=== PATIENT | female | born 1955 | race Caucasian/White ===

== ENCOUNTER 2024-04-19 17:47 | Observation (INO) | payer MEDICARE, SELFPAY ==
[2024-04-19] VITALS (33 sets, daily range): BP systolic 137–177; BP diastolic 61–97; PULSE 74–98; RESP 12–28; TEMP 36.1–36.6; O2SAT 73–100; BMI 34.4
--- NOTE | ~2024-04-19 | CT_ITS ---
EXAMINATION: CTA chest PE abdomen pel DATE: 04/19/2024 20:07 INDICATION: TECHNIQUE: Computed tomography (CT) of the chest, abdomen, and pelvis was performed without intraveno us contrast. Automated exposure control and iterative reconstruction technique were employed. Exam do se: 1737.58 mGy-cm total exam DLP. COMPARISON: None FINDINGS: CHEST CT: Normal heart size. Trace pericardial fluid. No hilar or mediastinal mass lesion or lymphadenopathy. There is thoracic aortic calcification but no aneurysm or dissection. No hilar or mediastinal mass lesion or lymphadenopathy. Mild discoid atelectasis or scarring at the base of the lingula. Mild discoid atelectasis or scarring in the left lower lobe and mild posterior basilar dependent left lower lobe atelectasis, likely due to splinting from the rib fractures. The lungs otherwise appear clear. Recent nondisplaced anterolateral left fifth rib fracture, minimally displaced anterolateral left six th rib fracture. ABDOMEN/PELVIS CT: No hepatic, splenic, pancreatic, adrenal or renal space occupying mass lesion or laceration. Status post cholecystectomy. No bile duct or pancreatic duct dilatation. No urinary tract calculus or hydroureteronephrosis. The urinary bladder is unremarkable. Status post hysterectomy. There is atherosclerotic calcification but normal caliber of the abdominal aorta and iliac arteries. No intraperitoneal or retroperitoneal or pelvic mass lesion or adenopathy or ascites. Occasional sigmoid diverticula; no CT evidence of diverticulitis. No bowel obstruction or intraperito dylan free air. The appendix appears to be absent. Included skeletal structures are otherwise unremarkable. IMPRESSION: Recent left fifth and sixth rib fractures Status post cholecystectomy Status post hysterectomy Mild sigmoid diverticulosis; no evidence of diverticulitis Reviewed, dictated and finalized at [facility] Reviewed, dictated and finalized at [facility].
--- NOTE | 2024-04-19 18:06 | ED.GENADULT ---
HPI - General Adult General Chief complaint: Shortness of Breath/Dyspnea Stated complaint: shortness of breath Time Seen by Provider: 04/19/24 18:06 Source: patient Mode of arrival: ambulatory Limitations: no limitations History of Present Illness HPI narrative: 68-year-old COPD , emphysema, asthma, rhinitis female complains of shortness of breath for the past 4 days fell out of bed and caused a bruise to her left side complains of pain increasing ever since increasing shortness of breath. her chronic cough is not changed any she rated her left-sided pain 5 to 6/10. It is worse when she gets some spasms on that left side. She is followed by a classics professor in [place]. Denies any chest pain fever. Past medical history COPD emphysema asthma rhinitis depression macular degeneration in her right eye she had a respiratory arrest when she had COVID in 2002. No history kidney and liver strokes anemia thyroid disease or heart disease. Surgical history tonsillectomy bladder type IOP appendectomy COVID gallbladder removed cataract surgery hysterectomy in 1986 Allergies none Social history she lives with her brother daughter and granddaughter she smoked 1 pack a day Related Data Home Medications Medication Instructions Recorded Confirmed albuterol sulfate 90 mcg/actuation 2 puff inhalation QID 04/19/24 04/19/24 aerosol inhaler (Ventolin HFA) aspirin 81 mg tablet,delayed 81 mg PO DAILY 04/19/24 04/19/24 release (Adult Low Dose Aspirin) cholecalciferol (vitamin D3) 25 25 mcg PO DAILY 04/19/24 04/19/24 mcg (1,000 unit) tablet famotidine 20 mg tablet 20 mg PO DAILY 04/19/24 04/19/24 fluticasone 250 mcg-salmeterol 50 1 inh inhalation BID 04/19/24 04/19/24 mcg/dose blistr powdr for inhalation lutein 6 mg capsule 6 mg PO DAILY 04/19/24 04/19/24 magnesium 250 mg tablet 250 mg PO DAILY 04/19/24 04/19/24 montelukast 10 mg tablet 10 mg PO QHS 04/19/24 04/19/24 rosuvastatin 10 mg tablet 10 mg PO DAILY 04/19/24 04/19/24 sertraline 100 mg tablet 100 mg PO DAILY 04/19/24 04/19/24 theophylline 300 mg 300 mg PO BID 04/19/24 04/19/24 tablet,extended release,12 hr tiotropium bromide 2.5 2 inh inhalation DAILY 04/19/24 04/19/24 mcg/actuation mist for inhalation (Spiriva Respimat) Allergies Allergy/AdvReac Type Severity Reaction Status Date / Time No Known Allergies Allergy Unknown Verified 04/19/24 18:00 Review of Systems Review of Systems: All systems reviewed & are unremarkable except as noted in HPI and below Exam Narrative: White Elderlyfemale patient with moderate distress distress.? 177/89 respirations 28 O2 sat 73% on room air. ( patient is on 3 L of nasal cannula at home but did not come to the emergency department with her oxygen on. ) Her sat on 3 L was 93% she is afebrile rest of her vitals are normal. Head normocephalic, atraumatic.? Eyes conjunctiva pink sclera nonicteric.? Extraocular movements are intact.? Ears externally normal.? Oropharynx is clear with moist mucous membranes without exudates.? Neck is supple nontender no lymphadenopathy.? Back is nontender.? Lungs Show diffuse wheezes and rhonchi throughout.? Heart is regular rate and rhythm without murmurs gallops or rubs.? Chest wall Tenderness laterally with bruising under her left breast and side and abdomen. Abdomen is soft and nontender no hepatosplenomegaly or masses no CVA tenderness no abdominal bruits.? Extremities no cyanosis clubbing or edema.? Skin is warm and dry without rashes or lesions.? Neurological patient is alert and oriented x4.? Motor and sensory grossly intact.? Gait is normal. Course Vital Signs Vital signs: Vital Signs Temperature 36.1 C L 04/19/24 17:55 Pulse Rate 98 04/19/24 17:55 Respiratory Rate 28 H 04/19/24 17:55 Blood Pressure 177/89 H 04/19/24 17:55 Pulse Oximetry 73 L 04/19/24 17:55 Oxygen Delivery Room Air 04/19/24 17:55 Temperature 36.6 C 04/19/24 18:51 Pulse Rate 86
[2024-04-19] MEDS: IPRATROPIUM 0.5 MG/ALBUTEROL SULFATE 2.5 MG AMPUL.NEB 3 ML (18:08)
--- NOTE | 2024-04-19 18:08 | ECG_ITS ---
Test Date: 2024-04-19 18:24:45 Measurements Intervals [place] Rate: 76 P: 70 [place]: 192 QRS: 103 QRSD: 136 T: 62 QT: 399 QTc: 449 Interpretive Statements SINUS RHYTHM RIGHT AXIS DEVIATION RIGHT BUNDLE BRANCH BLOCK MINIMAL Q WAVES- INFERIOR LEADS BASELINE ARTIFACT- I, II, III, AVR, AVL, AVF, V2-V3 ABNORMAL ECG No previous ECG available for comparison Electronically Signed On 04-19-2024 19:32:30 CDT by Jeronimo Roldan D.O.
[2024-04-19] MEDS: ALBUTEROL SULFATE NEB 2.5 MG/3 ML INH INHALATION (18:15)
[2024-04-19] MEDS: fentaNYL CITRATE INJ (*CRX) 100 MCG/2 ML VIAL 50 MCG IV PUSH (18:34)
[2024-04-19] MEDS: ONDANSETRON INJ 4 MG/2 ML VIAL IV PUSH (18:35)
[2024-04-19] MEDS: methylPREDNISolone SOD SUCC 125 MG VIAL IV PUSH (18:35)
[2024-04-19 18:56] LABS: HCO3 ABG 30.6 mmol/L (23-29); Oxygen Content ABG 18.2 %vol (16.0-22.0); Oxygen Saturation ABG 90.2 % (95-97); Oxyhemoglobin 88.8 % (94-100); PO2 ABG 60.9 mmHg (75-85); pH ABG 7.33 (7.35-7.45)
[2024-04-19 18:59] LABS: Device NASAL CANNULA; Modified Allen's Test Pass; Site Drawn RIGHT RADIAL
[2024-04-19] MEDS: IPRATROPIUM 0.5 MG/ALBUTEROL SULFATE 2.5 MG AMPUL.NEB 3 ML INHALATION (19:02)
[2024-04-19 19:03] LABS: Hematocrit 43.6 % (35.0-42.0); Hemoglobin 13.5 g/dL (11.7-13.8); Mean Corpuscular Hemoglobin 29.5 pg (27.0-31.0); Mean Corpuscular Volume 95.2 fL (78.0-102.0); Mean Platelet Volume 10.2 fl (9.2-11.8); Platelet Count Result 216 K/mm3 (150-420); Red Blood Count 4.58 M/mm3 (4.20-5.40); Red Cell Distribution Width 13.9 % (11.6-14.4); White Blood Count 7.6 K/mm3 (4.8-10.8)
[2024-04-19 19:21] LABS: Lactic Acid Reflex 0.5 mmol/L (0.4-2.0)
[2024-04-19 19:30] LABS: Alanine Aminotransferase 15 U/L (14-59); Alkaline Phosphatase 95 U/L (46-116); Anion Gap 6 mmol/L (4-12); Aspartate Amino Transferase 13 U/L (15-37); Bilirubin,Total 0.7 mg/dL (0.00-1.00); Blood Urea Nitrogen 14 mg/dL (7-18); Calcium 8.9 mg/dL (8.5-10.1); Carbon Dioxide 35 mmol/L (21-32); Chloride 100 mmol/L (98-108); Estimated CRCL calculation 64 ml/min; Estimated Glomerular Filt Rate > 60; Glucose 115 mg/dL (70-99); INR 0.9; Lipase 20 U/L (16-77); Magnesium 1.6 mg/dL (1.8-2.4); NT Pro B Type Natriuretic Pept 180 pg/mL (0-125); Osmolality Calculated 293 mOsm/kg (285-295); Partial Thromboplastin Time 28.2 Sec (23.9-30.70); Potassium 4.3 mmol/L (3.5-5.1); Prothrombin Time 10.3 Seconds (9.50-12.1); Sodium 141 mmol/L (136-145); Total Protein 7.3 g/dL (6.4-8.2); Troponin I 9.3 ng/L (0.00-60.4)
[2024-04-19 19:32] LABS: Ethanol < 3 mg/dL (0-6)
--- NOTE | 2024-04-19 19:35 | PC.NURSE ---
Report received, pt resting, awaiting to go fro CT scan per order, no c/o reports feeling better since treatment.
[2024-04-19 19:37] LABS: Albumin Level 3.8 g/dL (3.4-5.0)
[2024-04-19 19:41] LABS: D Dimer 1.07 mg/L (0.19-0.50); SARS-CoV-2 RNA PCR Negative (Negative)
[2024-04-19 19:48] LABS: Influenza A QL RT-PCR Negative (Negative); Influenza B QL RT-PCR Negative (Negative); RSV RNA, RT-PCR Negative (Negative)
--- NOTE | 2024-04-19 20:58 | PC.NURSE ---
Pt resting and on her ipad, she reports feeling better, continuing to monitor, VSS, poc discussed w/ pt and she wants to be admitted here. Pt given sips of water w/ ice. Monitor shows SR and O2 in place continues at 3L NC.
--- NOTE | 2024-04-19 21:35 | PC.NURSE ---
Call placed to floor, spoke w/ charge preparation technician Juanita. Pt will be admitted for 23 hr obs. to Rm 208.
--- NOTE | 2024-04-19 21:48 | PC.NURSE ---
ED SBAR printed and reviewed; room is ready for pt arrival. Awaiting pt to arrive to floor from ED.
--- NOTE | 2024-04-19 22:10 | ADMGEN ---
This patient, Radha Washington, was admitted to 2nd Floor Room 208-2. Patient oriented to hospital policies and general routines including ID bracelet, bed and alarms, visiting hours, pain management, procedures, bathroom and other care routines, personal items, smoking policy, room service/diet, and visiting hours. Information on how to activate the Rapid Response Team has been discussed. Patient are encouraged to report perceived risks to care and to ask questions if they do not understand what they are told or what they should do.
[2024-04-20] VITALS (7 sets, daily range): BP systolic 156–162; BP diastolic 66–80; PULSE 73–96; RESP 16–20; TEMP 35.9–36.1; O2SAT 93–95
[2024-04-20] MEDS: IPRATROPIUM 0.5 MG/ALBUTEROL SULFATE 2.5 MG AMPUL.NEB 3 ML INHALATION ×2 (00:15→04:56)
[2024-04-20] MEDS: THEOPHYLLINE 300 MG ER 12 HR TABLET PO ×2 (00:17→09:27)
[2024-04-20] MEDS: FAMOTIDINE 20 MG TABLET PO ×2 (00:18→09:28)
[2024-04-20] MEDS: MONTELUKAST SODIUM 10 MG TABLET PO (00:18)
[2024-04-20] MEDS: methylPREDNISolone SOD SUCC 125 MG VIAL 60 MG IV PUSH (06:55)
--- NOTE | 2024-04-20 07:59 | PM.IMHP ---
H&P: HPI History of Present Illness Date/Time: 04/20/24 07:59 Chief Complaint: shortness of breaths Narrative: this is a 68-year-old female with a past medical history significant for COPD, asthma,.......... the patient provides the following history In the emergency room labs were significant for an elevated D-dimer of 1.07 and ABG showed pH 7.33, pCO2 60, PO2 60.9, HC03 30.6, and oxyhemoglobin 88.8% on 3 L nasal cannula. Her CBC was unremarkable. BNP showed CO2 35, glucose 115, magnesium 1.6, and proBNP 180. Quad viral screen was negative. Vital signs on admission, blood pressure of 177/89, heart rate 90, respiratory rate 28, pulse ox 73% on room air, and temperature 96.9?. the patient was placed on 3 L nasal cannula and her oxygen saturation improved to 93%. In the emergency room she received DuoNeb, methylprednisone 125 mg IV push, 4 mg of Zofran, 20 mg of Pepcid, and fentanyl 50 mcgs IVP for pain. She was admitted in this setting for observation of her acute on chronic hypoxic respiratory failure. Review of Systems Review of Systems: All systems reviewed & are unremarkable except as noted in HPI and below PMFSH Social History Social History Smoking packs per day: 1 Smoking cigarettes per day: 20.0 Years smoked: 54 Smoking pack-years: 54.00 Smoking status: Former smoker Tobacco type: cigarettes Smoking end date: 04/16/24 Alcohol intake: current Drinks per week: 0 Substance use: never Do You Feel Safe in your Home?: Yes Lack of Transportation: No Lack of Food: Never True Current Housing: I Have Housing Concerned About Future Housing: No Difficulty Paying Gas/Electric Bills: No Difficulty Paying for Meds: No Currently Unemployed: No Education: High School Diploma/GED Difficulty w/ Childcare or Family Care: No Spiritual care concerns: No Meds Home Medications and Allergies Home Medications Medication Instructions Recorded Confirmed Type albuterol sulfate 90 mcg/actuation 2 puff inhalation QID 04/19/24 04/19/24 History aerosol inhaler (Ventolin HFA) aspirin 81 mg tablet,delayed 81 mg PO DAILY 04/19/24 04/19/24 History release (Adult Low Dose Aspirin) cholecalciferol (vitamin D3) 25 25 mcg PO DAILY 04/19/24 04/19/24 History mcg (1,000 unit) tablet famotidine 20 mg tablet 20 mg PO DAILY 04/19/24 04/19/24 History fluticasone 250 mcg-salmeterol 50 1 inh inhalation BID 04/19/24 04/19/24 History mcg/dose blistr powdr for inhalation lutein 6 mg capsule 6 mg PO DAILY 04/19/24 04/19/24 History magnesium 250 mg tablet 250 mg PO DAILY 04/19/24 04/19/24 History montelukast 10 mg tablet 10 mg PO QHS 04/19/24 04/19/24 History rosuvastatin 10 mg tablet 10 mg PO DAILY 04/19/24 04/19/24 History sertraline 100 mg tablet 100 mg PO DAILY 04/19/24 04/19/24 History theophylline 300 mg 300 mg PO BID 04/19/24 04/19/24 History tablet,extended release,12 hr tiotropium bromide 2.5 2 inh inhalation DAILY 04/19/24 04/19/24 History mcg/actuation mist for inhalation (Spiriva Respimat) vitamin A-vitamin C-vit E-min 1 tablet PO DAILY 04/19/24 04/19/24 History tablet Allergies Allergy/AdvReac Type Severity Reaction Status Date / Time No Known Allergies Allergy Unknown Verified 04/19/24 18:00 Vital Signs Vital Signs - 24 hr 04/19/24 17:55 04/19/24 18:05 04/19/24 18:00 Temperature 96.9 F L Pulse Rate 98 90 Respiratory Rate 28 H Blood Pressure 177/89 H Pulse Oximetry 73 L 93 Oxygen Delivery Room Air Nasal Cannula Oxygen Flow Rate 3 04/19/24 17:58 04/19/24 18:09 04/19/24 18:16 Temperature Pulse Rate 76 77 Respiratory Rate 22 H 15 Blood Pressure Pulse Oximetry 84 L 93 95 Oxygen Delivery Nasal Cannula Oxygen Flow Rate 3 3 3 04/19/24 18:02 04/19/24 18:15 04/19/24 18:51 Temperature 97.8 F Pulse Rate 85 74 80 Respiratory Rate 24 H 14 Blood Pressure 150/72 H
[2024-04-20] MEDS: FLUTICASONE PROP 220 MCG (*SP) 12 GM INHALER 2 PUFF INHALATION (09:26)
[2024-04-20] MEDS: CHOLECALCIFEROL 1,000 UNITS TABLET 1000 UNITS PO (09:28)
[2024-04-20] MEDS: ASPIRIN 81 MG ENTERIC TABLET PO (09:28)
[2024-04-20] MEDS: MAGNESIUM OXIDE 400 MG TABLET 200 MG PO (09:29)
--- NOTE | 2024-04-20 09:29 | PM.SD2 ---
Same Day Admit/Disch: HPI History of Present Illness Chief complaint: COPD exacerbation Narrative: This is a 68-year-old female with a past medical history significant for COPD and asthma who presented to the emergency room with complaints of left-sided rib pain after falling out of bed a few days ago. The patient provides the following history. A few days ago she was asleep in bed and rolled out and struck her left side on a small table. The following day she had bruising and her pain has been increasingly worse so she wanted to come to the emergency room to be evaluated. She has chronic respiratory failure and COPD for which she wears 3 L continuously. Yesterday when she came to the emergency room she wore her oxygen in the car but then took it off to walk into the hospital as it was too heavy to take with her. While she does have congestion she has no increased sputum production, no increased shortness of breath, and no fever chills. She does not feel like she is having a COPD exacerbation. She really states she came because of her rib pain and make sure she had not developed a pneumonia. In the emergency room labs were significant for an elevated D-dimer of 1.07 and ABG showed pH 7.33, pCO2 60, PO2 60.9, HC03 30.6, and oxyhemoglobin 88.8% on 3 L nasal cannula. Her CBC was unremarkable. BNP showed CO2 35, glucose 115, magnesium 1.6, and proBNP 180. Quad viral screen was negative. Vital signs on admission, blood pressure of 177/89, heart rate 90, respiratory rate 28, pulse ox 73% on room air, and temperature 96.9?. the patient was placed on 3 L nasal cannula and her oxygen saturation improved to 93%. In the emergency room she received DuoNeb, methylprednisone 125 mg IV push, 4 mg of Zofran, 20 mg of Pepcid, and fentanyl 50 mcgs IVP for pain. She was admitted in this setting for observation of her acute on chronic hypoxic respiratory failure. [facility] Past Medical History Medical History Asthma COPD (chronic obstructive pulmonary disease) Hyperlipidemia Surgical History Surgical History History of appendectomy History of bladder surgery History of cholecystectomy History of hysterectomy for cancer History of tonsillectomy Family History Family History (Updated 04/20/24 @ 09:36 by Catherine Gardner APRN) Mother Diabetes mellitus Heart disease End stage renal disease Father Hypertension Heart disease Social History Social History (Updated 04/20/24 @ 09:38 by Catherine Gardner APRN) Social History: patient lives in her home with her brother, sister, granddaughter, granddaughter's boyfriend, and great grandson. She is semi-retired. She still works as a home health aide. She does not drink alcohol and she reports a 50 year smoking history. She states she quit smoking 1 week ago. Smoking packs per day: 1 Smoking cigarettes per day: 20.0 Years smoked: 54 Smoking pack-years: 54.00 Smoking status: Former smoker Tobacco type: cigarettes Smoking end date: 04/16/24 Alcohol intake: current Drinks per week: 0 Alcohol use details: Rare alcohol use Substance use: never Do You Feel Safe in your Home?: Yes Lack of Transportation: No Lack of Food: Never True Current Housing: I Have Housing Concerned About Future Housing: No Difficulty Paying Gas/Electric Bills: No Difficulty Paying for Meds: No Currently Unemployed: No Education: High School Diploma/GED Difficulty w/ Childcare or Family Care: No Living arrangements: with family Occupation/Education: occupation Additional occupation/education 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 previously worked at [employer] in [facility] care concerns: No Same Day Admit/Disch: Med Pre-admit Medications Home Medications Medication Instructions Recorded Confirmed Type albuterol sulfate 90 mcg/actuation 2 pu
[2024-04-20] MEDS: DOCUSATE SODIUM 100 MG CAPSULE PO (09:30)
[2024-04-20] MEDS: ROSUVASTATIN 10 MG TABLET PO (09:31)
[2024-04-20] MEDS: SERTRALINE HCL 50 MG TABLET 100 MG PO (09:35)
[2024-04-20] MEDS: UMECLIDINIUM BROMIDE 62.5 MCG ELLIPTA 1 PUFF INHALATION (09:36)
[2024-04-20] MEDS: SALMET XINAFT/FLUTIC PROPIN 250 MCG/50 MCG INH CAP 1 PUFF INHALATION (09:37)
[2024-04-20 10:11] LABS: Add Urine Microscopic? YES; Appearance Urine Clear (Clear); Bilirubin Urine Negative (Negative); Blood Urine Negative (Negative); Color Urine Yellow (Yellow); Glucose Urine UA Negative (Negative); Ketones Urine Negative (Negative); Leukocyte Esterase Ur Negative LEU/UL (Negative); Nitrate Urine Negative (Negative); Protein Urine 1+ (Negative); Specific Grav Ur 1.015 (1.010-1.020)
[2024-04-20 10:31] LABS: Bacteria Urine Rare /hpf; RBC Urine None seen /hpf (0-2); Squamous Epithelial Cell Urine Few /hpf (Few); WBC Urine None seen /hpf (0-3)
--- NOTE | 2024-04-20 12:25 | PC.NURSE ---
Pt discharged to home and family care. Discharge instructions given to pt. Medications reviewed and new medication instructions given. Reviewed Oxygen precautions with pt. Pt instructed to go to [facility] in [place] to get a new nebulizer machine, no prescription is needed . Pt taken to family car via WC by nurse
[2024-04-21 08:28] LABS: Theophylline 5.7 mg/L (10.0-20.0)
--- NOTE | 2024-04-21 09:07 | PC.NURSE ---
Discharge call back completed, all scripts filled, no questions regarding dc instructions
== END 2024-04-20 11:45 | disposition home or self-care (01) ==
LOC: CHSED 21:12 → CHS2ND 22:03
PROVIDERS: Admitting Provider Internal Medicine; Emergency Provider Emergency Medicine; Visit Provider Internal Medicine
DX: S22.42XA Multiple fractures of ribs, left side, initial encounter for closed fracture (principal); J96.21 Acute and chronic respiratory failure with hypoxia; J44.1 Chronic obstructive pulmonary disease with (acute) exacerbation; W06.XXXA Fall from bed, initial encounter; Z79.51 Long term (current) use of inhaled steroids; Z79.82 Long term (current) use of aspirin; E78.5 Hyperlipidemia, unspecified; Z87.891 Personal history of nicotine dependence; Z99.81 Dependence on supplemental oxygen; Z20.822 Contact with and (suspected) exposure to COVID-19; Z79.899 Other long term (current) drug therapy
CPT/HCPCS: 36415; 36600; 71275; 74177; 80053; 80198; 80307; 81001; 82805; 82810; 83605; 83690; 83735; 83880; 84484; 85027; 85380; 85610; 85730; 87040; 87637; 93005; 94640; 96365; 96375; 96376; 99285; A9270; G0378; J0696; J2405; J2919; J3010; Q9967